=== PATIENT | male | born 1945 | race Caucasian/White ===

== ENCOUNTER 2016-09-28 05:33 | Day surgery (SDC) | payer MEDICARE, BC ==
[~2016-09-28] VITALS: Ht 180.3 cm; Wt 99.4 kg
[2016-09-28] VITALS (7 sets, daily range): BP systolic 87–108; BP diastolic 54–79; PULSE 61–96; TEMP 98.1–98.3
[~2016-09-28 05:33] MED LIST: ALTACE5 M1 PO; BETAPACE AF120 MG PO; COUMADIN 22.5 MG/TAB PO; COUMADIN 5MG5 MG/TAB PO; FISH OIL CONC1000 MG PO; FORTAMET1000 MG PO; JANUVIA 100MG100 MG PO; LANOXIN 0.120.125 MG PO; LIPITOR 10MG10 MG PO; METFORMIN850 MG PO; TOPROL XL 50MG50 MG PO; VITAMIN D31000 IU PO
[2016-09-28] MEDS ORDERED: ALTACE 5MG5 MG PO (06:34)
[2016-09-28] MEDS ORDERED: GLUCOPHAGE500 MG/TAB PO (06:39)
[2016-09-28] MEDS ORDERED: TOPROL XL100 MG PO (06:40)
[2016-09-28] MEDS ORDERED: TRICOR 48MG48 MG PO (06:42)
[2016-09-28] MEDS ORDERED: B-121000 MCG PO (06:47)
[2016-09-28] MEDS ORDERED: INSLANT SQ (06:52)
[2016-09-28] MEDS ORDERED: NORCO 325 MG-7.1 TAB PO (08:32)
== END 2016-09-28 10:43 | disposition home or self-care (01) ==
LOC: SDCO 05:33
DX: K40.90 Unilateral inguinal hernia, without obstruction or gangrene, not specified as recurrent (principal); I10 Essential (primary) hypertension; G47.30 Sleep apnea, unspecified; E11.9 Type 2 diabetes mellitus without complications; I48.91 Unspecified atrial fibrillation; Z79.01 Long term (current) use of anticoagulants; Z79.899 Other long term (current) drug therapy
CPT/HCPCS: C1781; J0690; J1100; J2250; J2704; J3010; J7030

== ENCOUNTER 2021-11-22 13:15 | Emergency (ER) | payer MEDICARE, BC ==
[~2021-11-22] VITALS: Ht 180.3 cm; Wt 90.9 kg
[~2021-11-22 13:15] MED LIST changes: +ALTACE 5MG5 MG PO; +B-121000 MCG PO; +GLUCOPHAGE500 MG/TAB PO; +INSLANT SQ; +NORCO 325 MG-7.1 TAB PO; +TOPROL XL100 MG PO; +TRICOR 48MG48 MG PO
[2021-11-22 13:33] VITALS: TEMP 98.4
[2021-11-22 14:03] LABS: BASO % 0.2 % (0.0-2.0); EOS % 0.1 % (0.0-4.0); GRAN # 8.4 K/mm3 (1.4-6.5); GRAN % 79.3 % (42.2-75.2); HEMATOCRIT 40.3 % (42.0-52.0); HEMOGLOBIN 13.7 g/dl (13.5-18.0); LYMPH # 1.3 K/mm3 (1.2-3.4); LYMPH % 12.4 % (20.0-51.0); MEAN CELL VOLUME 90 fl (80.0-100.0); MEAN CORPUSCULAR HEMOGLOBIN 31 pg (27-31); MEAN CORPUSCULAR HGB CONC 34 g/dl (33.0-37.0); MEAN PLATELET VOLUME 9.9 fl (7.4-10.4); MONO # 0.8 K/mm3 (0.1-0.6); MONO % 7.6 % (1.7-9.3); PLATELET COUNT 202 K/mm3 (130-400); RED BLOOD COUNT 4.46 M/mm3 (4.20-5.60); REDCELL DISTRIBUTION WIDTH-CV 12.5 % (11.5-14.5)
[2021-11-22 14:06] LABS: INR 2.2 (0.8-3.0); PROTHROMBIN TIME 25.9 SECONDS (9.7-12.8)
[2021-11-22 14:16] LABS: ALBUMIN 4.2 gm/dL (3.4-4.8); BILIRUBIN,TOTAL 0.8 mg/dL (0.2-1.2); CALCIUM 10.1 mg/dL (8.4-10.2); CREATININE, serum 1.9 mg/dL (0.72-1.25); POTASSIUM 4.7 mmol/L (3.5-4.5)
[2021-11-22 14:22] LABS: TROPONIN-I 0.016 ng/mL (0.00-0.033)
[2021-11-22 15:07] LABS: COLLECTION METHOD CLEAN CATCH
[2021-11-22 15:31] LABS: PH 5 (5-8); URINE APPEARANCE Clear (CLEAR/HAZY); URINE BACTERIA None Seen /hpf (NONE SEEN); URINE BILIRUBIN Negative (NEGATIVE); URINE BLOOD 3+ (NEGATIVE); URINE COLOR Yellow (YELLOW); URINE GLUCOSE 3+ (NEGATIVE); URINE KETONE Trace (NEGATIVE); URINE LEUKOCYTE ESTERASE Negative (NEGATIVE); URINE NITRATE Negative (NEGATIVE); URINE PROTEIN(semi-quant) Negative (NEGATIVE); URINE RBC >50 /hpf (0-2); URINE UROBILINOGEN Negative (NEGATIVE)
[2021-11-22] MEDS ORDERED: VANTIN100 MG PO ×3 (15:55→15:56)
[2021-11-22] MEDS ORDERED: NORCO 325 MG-51 TAB PO ×2 (15:55→15:56)
[2021-11-22] MEDS ORDERED: ZOFRAN ODT4 MG PO (15:58)
[2021-11-22 16:31] VITALS: BP 134/88; PULSE 78
== END 2021-11-22 16:31 | disposition home or self-care (01) ==
LOC: COL.ER 13:15
PROVIDERS: Emergency Medicine
DX: N20.0 Calculus of kidney (principal); R79.89 Other specified abnormal findings of blood chemistry; I48.91 Unspecified atrial fibrillation; Z79.01 Long term (current) use of anticoagulants
CPT/HCPCS: J0696; J2270; J2405; J7120; Q9967